=== PATIENT | female | born 1990 | race African-American/Black ===

== ENCOUNTER 2023-12-22 05:54 | Emergency (ER) | payer MEDICAID, OTHER ==
[2023-12-22] MEDS ORDERED: Lidocaine 1% w/Epinephrine 1:100K 20 ML VIAL ONE (06:12)
[2023-12-22] MEDS ORDERED: HYDROcodone/Acetaminophen 5/325 mg Tablet ONE (06:12)
== END 2023-12-22 08:30 ==
LOC: ERS 05:54
DX: S01.112A Laceration without foreign body of left eyelid and periocular area, initial encounter (principal); Y04.8XXA Assault by other bodily force, initial encounter
CPT/HCPCS: 12011; 70450; 70486; 72125